=== PATIENT | male | born 1945 | race Caucasian/White ===

== ENCOUNTER 2016-06-09 16:47 | Inpatient (IN) | payer MEDICARE, BC ==
[~2016-06-09] VITALS: Ht 172.7 cm; Wt 47.6 kg
[2016-06-09] MEDS ORDERED: NKM (16:48)
[2016-06-09 17:54] LABS: BASOPHILS % (AUTO) 0.9 % (0.0-2.0); EOSINOPHILS % (AUTO) 0.3 % (0.0-3.0); LYMPHOCYTES % (AUTO) 18.5 % (20.0-45.0); MEAN CORPUSCULAR HEMOGLOBIN 31.2 PG (27.0-31.0); MEAN CORPUSCULAR HGB CONC 31.4 G/DL (32.0-36.0); MEAN CORPUSCULAR VOLUME 99 FL (80-99); MEAN PLATELET VOLUME 7.1 FL (6.5-10.1); NEUTROPHILS % (AUTO) 70.4 % (45.0-75.0); PLATELET COUNT 144 K/UL (150-450); RED BLOOD COUNT 5.52 M/UL (4.70-6.10); RED CELL DISTRIBUTION WIDTH 12.3 % (11.6-14.8); WHITE BLOOD COUNT 4.8 K/UL (4.8-10.8)
[2016-06-09] MEDS ORDERED: DuoNeb 0.5-3(2.5)mg/3ml neb HHN ONE (18:00)
[2016-06-09] MEDS ORDERED: Solu-MEDROL 125mg Inj IVP ONE (18:00)
[2016-06-09 18:20] LABS: APPEARANCE,URINE CLEAR; KETONES,URINE 4+ (NEGATIVE); LEUKOCYTE ESTERASE ,URINE NEGATIVE (NEGATIVE); NITRITE,URINE NEGATIVE (NEGATIVE); PH,URINE 5 (4.5-8.0); PROTEIN,URINE 1+ (NEGATIVE); TROPONIN I < 0.30 ng/mL (<=0.30); UROBILINOGEN,URINE NORMAL MG/DL (0.0-1.0)
[2016-06-09 18:23] LABS: ALANINE AMINOTRANSFERASE 24 U/L (3-41); ANION GAP 13 (5-15); ASPARTATE AMINO TRANSFERASE 45 U/L (5-40); CALCIUM 8.9 mg/dL (8.6-10.2); CARBON DIOXIDE 30 mEQ/L (20-30); CHLORIDE 92 mEQ/L (98-107); CREATININE 0.7 mg/dL (0.7-1.2); HEMOLYSIS 97; POTASSIUM 4.5 mEQ/L (3.4-4.9); SODIUM 135 mEQ/L (135-145); TOTAL PROTEIN 7.3 g/dL (6.6-8.7)
[2016-06-09 18:28] LABS: BACTERIA,URINE FEW /HPF; RBC,URINE 0-2 /HPF (0 - 0); WBC,URINE 0-2 /HPF (0 - 0)
[2016-06-09 18:33] LABS: CKMB < 1.5 ng/mL (< 6.7)
[2016-06-09 19:00] VITALS: BP 108/88
[2016-06-09] MEDS ORDERED: Ketorolac 30mg Inj IV ONE (20:15)
[2016-06-09 23:10] VITALS: BP 103/84
--- NOTE | 2016-06-09 23:46 | Emergency Room Report ---
History of Present Illness General Chief Complaint: General Complaint Source: Patient, EMS Present Illness HPI Patient is a 71-year-old male presented after increased difficulty breathing. The patient had prior history of COPD. The patient had gradually worsening difficulty breathing. Patient had a nonproductive cough. Patient had had not seen a physician for a long period time. Patient does not use oxygen at home. The patient states he had previously had a problem with pain medications. The patient had a long history of smoking. Allergies: Coded Allergies: No Known Allergies (Unverified , 06/09/16) Patient History Past Medical History: see triage record Reviewed Nursing Documentation: PMH: Agreed, PSxH: Agreed Nursing Documentation-PMH Past Medical History: No History, Except For Hx COPD: Yes Review of Systems All Other Systems: negative except mentioned in HPI Physical Exam Vital Signs Date Time Temp Pulse Resp B/P Pulse Ox O2 Delivery O2 Flow Rate FiO2 06/09/16 16:43 98.8 114 26 114/86 99 Room Air 06/09/16 18:30 21 Sp02 EP Interpretation: reviewed, normal General Appearance: normal inspection, alert, mild distress, thin, Chronically Ill Head: atraumatic ENT: normal ENT inspection, hearing grossly normal, normal voice Neck: normal inspection, full range of motion, supple, no bony tend Respiratory: normal inspection, lungs clear, normal breath sounds, no respiratory distress, no retraction, no wheezing Cardiovascular #1: no edema, tachycardia Gastrointestinal: normal inspection, normal bowel sounds, non tender, soft, no guarding, no hernia Genitourinary: no CVA tenderness Musculoskeletal: normal inspection, back normal, normal range of motion Neurologic: normal inspection, alert, oriented x3, responsive, resume writer III-XII nml as tested, motor strength/tone normal, speech normal Psychiatric: normal inspection, judgement/insight normal, mood/affect normal Skin: normal inspection, normal color, no rash Medical Decision Making Diagnostic Impression: Primary Impression: COPD (chronic obstructive pulmonary disease) with emphysema Additional Impressions: Smoker Substance abuse in remission COPD with exacerbation Hypoxemia ER Course Presented for shortness of breath.Differential included but was not limited to anemia, pneumonia, pneumothorax, myocardial infarction, pericardial effusion, congestive heart failure, acidosis. Because of complexity of patient's case laboratory testing and imaging studies were ordered. A chest x-ray one view interpreted by me showed hyperinflation with multiple bullae. The patient was given IV Solu-Medrol. The patient was noted to have some improvement in his respirations. The patient started on supplemental oxygen.The patient was noted to have normal white blood count as well as normal troponin. Dr. Neil Chi was contacted for inpatient management due to hypoxemia. Labs Test 06/09/16 17:30 White Blood Count 4.8 K/UL (4.8-10.8) Red Blood Count 5.52 M/UL (4.70-6.10) Hemoglobin 17.2 G/DL (14.2-18.0) Hematocrit 54.7 % (42.0-52.0) Mean Corpuscular Volume 99 FL (80-99) Mean Corpuscular Hemoglobin 31.2 PG (27.0-31.0) Mean Corpuscular Hemoglobin Concent 31.4 G/DL (32.0-36.0) Red Cell Distribution Width 12.3 % (11.6-14.8) Platelet Count 144 K/UL (150-450) Mean Platelet Volume 7.1 FL (6.5-10.1) Neutrophils (%) (Auto) 70.4 % (45.0-75.0) Lymphocytes (%) (Auto) 18.5 % (20.0-45.0) Monocytes (%) (Auto) 10.0 % (1.0-10.0) Eosinophils (%) (Auto) 0.3 % (0.0-3.0) Basophils (%) (Auto) 0.9 % (0.0-2.0) Urine Color Yellow Urine Appearance Clear Urine pH 5 (4.5-8.0) Urine Specific [place] 1.020 (1.005-1.035) Urine Protein 1+ (NEGATIVE) Urine Glucose (UA) Negative (NEGATIVE) Urine Ketones 4+ (NEGATIVE) Urine Occult Blood 1+ (NEGATIVE) Urine Nitrite Negative (NEGATIVE) Urine Bilirubin Negative (NEGATIVE) Urine Urobilinogen Normal MG/DL (0.0-1.0) Urine Leukocyte Esterase Negative (NEGATIVE) Urine RBC 0-2 /HPF (0 - 0) Urine WBC 0-2 /HPF (0 - 0) Urine Squamous Epithelial Cells None /LPF (NONE/OCC) Urine Bacteria Few /HPF (NONE) Sodium Level 135 mEQ/L (135-145) Potassium Level 4.5 mEQ/L (3.4-4.9) Chloride Level 92 mEQ/L (98-107) Carbon Dioxide Level 30 mEQ/L (20-30) Anion Gap 13 (5-15) Blood Urea Nitrogen 13 mg/dL (7-23) Creatinine 0.7 mg/dL (0.7-1.2) Estimat Glomerular Filtration Rate mL/min (>60) Glucose Level 113 mg/dL (74-106) Lactic Acid Level 1.80 mmol/L (0.66-2.22) Calcium Level 8.9 mg/dL (8.6-10.2) Total Bilirubin 0.3 mg/dL (0.0-1.2) Aspartate Amino Transf (AST/SGOT) 45 U/L (5-40) Alanine Aminotransferase (ALT/SGPT) 24 U/L (3-41) Alkaline Phosphatase 79 U/L (40-129) Total Creatine Kinase 45 U/L (38-174) Creatine Kinase MB < 1.5 ng/mL (< 6.7) Creatine Kinase MB Relative Index Troponin I < 0.30 ng/mL (<=0.30) Total Protein 7.3 g/dL (6.6-8.7) Albumin 3.8 g/dL (3.5-5.2) Globulin 3.5 g/dL Albumin/Globulin Ratio 1.0 (1.0-2.7) EKG Diagnostic Results Rate: tachycardiac - 126 Rhythm: NSR ST Segments: no acute changes Rhythm Strip Diag. Results EP Interpretation: yes Rhythm: no PVC's, no ectopy, other - sinus tachycardia Chest X-Ray Diagnostic Results EP Interpretation: Yes Findings: no consolidation, no effusion, no pneumothorax, no acute cardiopulmonary disease Number of Views: 1 Last Vital Signs Date Time Temp Pulse Resp B/P Pulse Ox O2 Delivery O2 Flow Rate FiO2 06/09/16 23:10 98.9 98 15 103/84 96 Room Air 21 Status: unchanged Disposition: ADMITTED INPATIENT Condition: Serious Referrals: NON PHYSICIAN (PCP) Arthur Brown Jun 09, 2016 23:46
[2016-06-10 04:30] VITALS: BP 102/54
[2016-06-10] MEDS ORDERED: Norco 5mg/325mg tab ORAL PRN (06:15)
[2016-06-10] MEDS ORDERED: guaiFENesin DM 100mg/5ml ORAL PRN (06:15)
[2016-06-10] MEDS ORDERED: DuoNeb 0.5-3(2.5)mg/3ml neb HHN PRN (06:15)
[2016-06-10] MEDS: NovoLOG Insulin Flexpen SUBQ SCH ×4 (06:30→21:00)
[2016-06-10] MEDS: Solu-MEDROL 125mg Inj IVP SCH ×3 (06:43→21:13)
[2016-06-10] MEDS ORDERED: DuoNeb 0.5-3(2.5)mg/3ml neb HHN SCH (07:00)
[2016-06-10 07:54] VITALS: BP 89/50
--- NOTE | 2016-06-10 08:31 | Diagnostic Imaging Report ---
Indication: PAIN Technique: spiral acquisitions obtained through the brain. Angled axial and coronal 5 x 5 mm slices were reconstructed. No IV contrast utilized. Radiation dose was minimized using automated exposure control Total dose length product 1411 mGycm. CTDIvol(s) 70 mGy Comparison: none FINDINGS: No acute hemorrhage or edema. No mass effect or midline shift. There is age-related enlargement of the ventricles and extra axial CSF spaces. There is periventricular deep white matter ischemic change. Normal up-white differentiation. Visualized orbits are unremarkable. Visualized sinuses are unremarkable. Intact calvarium. IMPRESSION: Chronic and age-related changes. Negative for acute intracranial bleed or mass effect This agrees with the preliminary interpretation provided overnight by Dr. Gomez The CT scanner at [facility] is accredited by the [employer] and the scans are performed using protocols designed to limit radiation exposure to as low as reasonably achievable to attain images of sufficient resolution adequate for diagnostic evaluation
[2016-06-10] MEDS: Heparin 5000 units/ml inj SUBQ SCH ×2 (09:00→21:19)
--- NOTE | 2016-06-10 09:02 | Diagnostic Imaging Report ---
Indication: SOB Technique: One view of the chest Comparison: none Findings: The lungs are hyperinflated, as in COPD. Lungs and pleural spaces are clear. The heart size is normal. Impression: COPD. No acute process
[2016-06-10 11:38] VITALS: BP 87/57
[2016-06-10] MEDS ORDERED: Pneumococcal Vaccine 25mcg/0.5ml IM ONE (12:00)
[2016-06-10] MEDS ORDERED: Influenza Virus Vaccine 0.5ml IM ONE (12:00)
--- NOTE | 2016-06-10 12:57 | History & Physical ---
History and Physical History & Physicial Dictated for Int Med-Dr Chi no. [id number]. DAVION STROUD Jun 10, 2016 12:57
[2016-06-10] MEDS ORDERED: Promethazine/Codeine 5ml UD ORAL PRN (13:00)
--- NOTE | 2016-06-10 15:03 | Cardiology Report ---
APPROVED REPORT EKG Measurement Heart [id number] ID [id number] Sinus tachycardia Right atrial enlargement Left axis deviation Low voltage QRS Cannot rule out Anteroseptal infarct, age undetermined Abnormal ECG
[2016-06-10] MEDS: DuoNeb 0.5-3(2.5)mg/3ml neb HHN SCH ×3 (15:34→23:30)
[2016-06-10 16:00] VITALS: BP 91/60
[2016-06-10] MEDS ORDERED: Tubing IV Secondary IV ONE (17:21)
--- NOTE | 2016-06-10 18:07 | History and Physical Report ---
DATE OF ADMISSION: 06/09/2016 CHIEF COMPLAINT: The patient is a 71-year-old white male with a history of chronic obstructive pulmonary disease, presents with chief complaint of shortness of breath. HISTORY OF PRESENT ILLNESS: Began on , 06/04/2016. The patient began to experience cough. The patient also had fevers and chills. The patient states he felt he had the flu. Cough is nonproductive. Fevers were low-grade up to 99 degrees Fahrenheit. The patient states that shortness of breath got worse. The patient also complained of chest tightness associated with the cough. The patient continued to have a nonproductive cough. The patient presented to [place] emergency room and initial chest x-ray revealed chronic obstructive pulmonary disease exacerbation. The patient is admitted for shortness of breath and chronic obstructive pulmonary disease acute exacerbation. PAST MEDICAL HISTORY: Significant for 1. Chronic obstructive pulmonary disease with emphysema. 2. History of peripheral vascular disease of bilateral lower extremities. PAST SURGICAL HISTORY: The patient denies. MEDICATIONS: Current medications, the patient denies. ALLERGIES: No known drug allergies. SOCIAL HISTORY: The patient is antony and has a life partner who is present during the interview. The patient admits to tobacco use of two packs per day. The patient states recently he has dropped to 1/4 pack per day. The patient denies alcohol use. 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 REVIEW OF SYSTEMS: Constitutional: The patient complains of subjective fevers and chills, as above. The patient denies weight loss or weight gain. HEENT: The patient denies ear or throat pain. The patient denies headache. Cardiovascular: The patient denies palpitations or chest pain. Chest: The patient complains of shortness of breath as above. The patient complains of nonproductive cough. The patient denies wheezes. Abdomen: The patient denies nausea, vomiting, or constipation. Genitourinary: The patient denies dysuria or increased frequency of urination. Neuromuscular: The patient denies seizures or generalized weakness. PHYSICAL EXAMINATION: VITAL SIGNS: Temperature 98.9 degrees, respirations 15 to 20, pulse 78 to 98, and blood pressure 87/57 to 105/85. GENERAL: The patient is a thin appearing white male, who is in moderate respiratory distress. HEENT: Eyes, pupils are equal and responsive to light and accommodation. Extraocular movements intact. NECK: Supple. No lymphadenopathy. CHEST: Lungs are clear to auscultation bilaterally without wheezes or rales. CARDIOVASCULAR: Regular rhythm and rate. S1 and S2. No murmurs, rubs, or gallops. ABDOMEN: Soft and nontender. She has poor air movement of bilateral lung royal. Few crackles at bilateral bases. Few scattered wheezes throughout the lung royal. ABDOMEN: Soft, nontender, and nondistended. Positive bowel sounds. No evidence of hepatosplenomegaly. Currently, no rebound and no guarding. RECTAL/GENITAL: Refused. EXTREMITIES: No clubbing, cyanosis, or edema. NEUROLOGIC: Cranial nerves II through XII are grossly intact without focal deficits. Motor strength in 5/5 bilaterally. Deep tendon reflexes are 2+ plantar. LABORATORY AND DIAGNOSTIC DATA: WBC 4.8, hemoglobin 17.2, hematocrit 54.7, and platelets 144,000. Sodium 135, potassium 4.5, chloride 92, CO2 30, BUN 13, creatinine 0.7, and glucose 117. Troponin less than 0.3. Chest x-ray revealed hyper infiltration consistent with chronic obstructive pulmonary disease. There were no infiltrates noted. ASSESSMENT: This is a 71-year-old white male 1. Shortness of breath. 2. Cough. 3. Chronic obstructive pulmonary disease. 4. Peripheral vascular disease. TREATMENT: 1. Shortness of breath/cough/chronic obstructive pulmonary disease, acute exacerbation. A Pulmonary consultation was obtained with Dr. Monica Dobbins. The patient has been started on intravenous Solu-Medrol. The patient is also receiving Levaquin antibiotics intravenously. The patient is also receiving DuoNeb q.4 h. as schedule. We will follow recommendations of Pulmonary. 2. Chronic obstructive pulmonary disease appears to be end-stage. The patient may require home oxygen upon discharge. We will follow recommendation of Pulmonary. 3. Peripheral vascular disease. Geovany Samaniego M.D. DR: SELENE JOB#: [id number] CC:
[2016-06-10 20:00] VITALS: BP 100/46
[2016-06-11] VITALS (7 sets, daily range): BP systolic 84–106; BP diastolic 51–61
[2016-06-11] MEDS: DuoNeb 0.5-3(2.5)mg/3ml neb HHN SCH ×6 (03:18→23:57)
[2016-06-11] MEDS: Solu-MEDROL 125mg Inj IVP SCH ×3 (05:54→21:21)
[2016-06-11] MEDS: NovoLOG Insulin Flexpen SUBQ SCH ×4 (06:30→21:00)
[2016-06-11] MEDS ORDERED: Levofloxacin 250mg/D5W 50ml IVPB SCH (07:00)
[2016-06-11 08:07] LABS: MEAN CORPUSCULAR HEMOGLOBIN 31.8 PG (27.0-31.0); MEAN CORPUSCULAR HGB CONC 32.7 G/DL (32.0-36.0); MEAN CORPUSCULAR VOLUME 97 FL (80-99); MEAN PLATELET VOLUME 8.3 FL (6.5-10.1); PLATELET COUNT 145 K/UL (150-450); RED BLOOD COUNT 4.49 M/UL (4.70-6.10); RED CELL DISTRIBUTION WIDTH 12.1 % (11.6-14.8); WHITE BLOOD COUNT 12.7 K/UL (4.8-10.8)
[2016-06-11 08:22] LABS: TROPONIN I < 0.30 ng/mL (<=0.30)
[2016-06-11 08:30] LABS: ALANINE AMINOTRANSFERASE 52 U/L (3-41); ALBUMIN/GLOBULIN RATIO 1.2 (1.0-2.7); ANION GAP 11 (5-15); ASPARTATE AMINO TRANSFERASE 60 U/L (5-40); CALCIUM 8.8 mg/dL (8.6-10.2); CARBON DIOXIDE 28 mEQ/L (20-30); CHLORIDE 99 mEQ/L (98-107); CREATININE 0.6 mg/dL (0.7-1.2); HEMOLYSIS 2; MAGNESIUM 1.9 mg/dL (1.7-2.5); PHOSPHORUS 2.7 mg/dL (2.5-4.8); SODIUM 138 mEQ/L (135-145); TOTAL PROTEIN 5.8 g/dL (6.6-8.7)
[2016-06-11] MEDS: Heparin 5000 units/ml inj SUBQ SCH ×2 (09:12→21:00)
[2016-06-11 10:27] LABS: BAND NEUTROPHILS % (MANUAL) 10 % (0-8); BASOPHILS % (MANUAL) 0 % (0-2); EOSINOPHILS % (MANUAL) 0 % (0-3); LYMPHOCYTES % (MANUAL) 5 % (20-45); NEUTROPHILS % (MANUAL) 80 % (45-75); PLATELET ESTIMATE ADEQUATE; PLATELET MORPHOLOGY NORMAL; TOTAL CELLS COUNTED 100
[2016-06-11] MEDS ORDERED: Promethazine/Codeine 5ml UD ORAL PRN ×2 (15:30→23:30)
--- NOTE | 2016-06-11 15:43 | Consultation ---
History of Present Illness General Date patient seen: Jun 11, 2016 Chief Complaint: General Complaint Referring physician: Dr. Chi Reason for Consultation: Dyspnea Present Illness HPI 71-year-old male with hx of emphysema, heavy smoking all his life, presented after increased difficulty breathing which started gradually worsening.He also had a nonproductive cough. Patient had had not seen a physician for a long period time. He was diagnosed to have acute exacerbation of COPD and emphysema and admitted for further work up. His cxr was very abnormal as well showing severe emphysematous changes. Allergies: Coded Allergies: No Known Allergies (Unverified , 06/09/16) Medication History Scheduled No Known Medications* (NKM - No Known Medications*), 0 ., (Reported) Patient History History Provided By: Patient Healthcare decision maker pt alert and oriented Resuscitation status Full Code Advanced Directive on File Past Medical/Surgical History Past Medical/Surgical History: (1) Smoker (2) Substance abuse in remission (3) COPD (chronic obstructive pulmonary disease) with emphysema Review of Systems Respiratory: Reports: shortness of breath, sputum, wheezing Physical Exam General Appearance: cachetic Lines, tubes and drains: peripheral HEENT: normocephalic, atraumatic Neck: non-tender, normal alignment Respiratory/Chest: chest wall non-tender, lungs clear Cardiovascular/Chest: normal peripheral pulses, normal rate Abdomen: normal bowel sounds, non tender Genitourinary/Rectal: normal genital exam, normal rectal exam Extremities: normal range of motion, non-tender 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 Last 24 Hour Vital Signs Date Time Temp Pulse Resp B/P Pulse Ox O2 Delivery O2 Flow Rate FiO2 06/11/16 14:40 97 20 100 Nasal Cannula 2.0 06/11/16 14:30 99 20 97 Nasal Cannula 2.0 06/11/16 12:00 102 06/11/16 11:42 97.5 101 20 87/51 98 Nasal Cannula 3.0 06/11/16 11:25 107 18 97 Nasal Cannula 2.0 06/11/16 11:15 107 18 93 Nasal Cannula 2.0 06/11/16 08:04 97.7 86 20 84/51 94 Nasal Cannula 3.0 06/11/16 08:00 83 06/11/16 07:45 89 18 98 Nasal Cannula 2.0 06/11/16 07:35 89 18 94 Nasal Cannula 2.0 06/11/16 07:33 93 Nasal Cannula 2.0 06/11/16 07:32 Nasal Cannula 2.0 06/11/16 04:11 98.4 86 19 90/55 97 Room Air 06/11/16 04:00 89 06/11/16 03:25 70 16 99 Nasal Cannula 2.0 28 06/11/16 03:17 71 16 96 Nasal Cannula 2.0 28 06/11/16 03:17 28 06/11/16 00:43 98.4 83 20 95/53 98 Nasal Cannula 2.0 06/11/16 00:00 95 06/10/16 23:38 87 16 98 Nasal Cannula 2.0 28 06/10/16 23:30 81 16 96 Nasal Cannula 2.0 28 06/10/16 23:30 28 06/10/16 20:31 90 18 98 Nasal Cannula 2.0 28 06/10/16 20:22 86 18 95 Nasal Cannula 2.0 28 06/10/16 20:22 28 06/10/16 20:21 94 Nasal Cannula 2.0 28 06/10/16 20:21 Nasal Cannula 2.0 28 06/10/16 20:00 97.6 96 20 100/46 97 Nasal Cannula 2.0 06/10/16 20:00 83 06/10/16 16:00 97.7 96 22 91/60 97 Nasal Cannula 2.0 06/10/16 16:00 78 06/10/16 15:49 73 18 100 Nasal Cannula 2.0 28 Intake and Output 06/10/16 06/11/16 19:00 07:00 Intake Total 1500 ml 1011.25 ml Output Total 350 ml 700 ml Balance 1150 ml 311.25 ml Intake Oral 600 ml 200 ml IV Total 900 ml 811.25 ml Output Urine Total 350 ml 700 ml Laboratory Tests Test 06/11/16 07:45 White Blood Count 12.7 K/UL (4.8-10.8) H Red Blood Count 4.49 M/UL (4.70-6.10) L Hemoglobin 14.3 G/DL (14.2-18.0) Hematocrit 43.7 % (42.0-52.0) Mean Corpuscular Volume 97 FL (80-99) Mean Corpuscular Hemoglobin 31.8 PG (27.0-31.0) H Mean Corpuscular Hemoglobin Concent 32.7 G/DL (32.0-36.0) Red Cell Distribution Width 12.1 % (11.6-14.8) Platelet Count 145 K/UL (150-450) L Mean Platelet Volume 8.3 FL (6.5-10.1) Neutrophils (%) (Auto) % (45.0-75.0) Lymphocytes (%) (Auto) % (20.0-45.0) Monocytes (%) (Auto) % (1.0-10.0) Eosinophils (%) (Auto) % (0.0-3.0) Basophils (%) (Auto) % (0.0-2.0) Differential Total Cells Counted 100 Neutrophils % (Manual) 80 % (45-75) H Lymphocytes % (Manual) 5 % (20-45) L Monocytes % (Manual) 5 % (1-10) Eosinophils % (Manual) 0 % (0-3) Basophils % (Manual) 0 % (0-2) Band Neutrophils 10 % (0-8) H Platelet Estimate Adequate Platelet Morphology Normal Red Blood Cell Morphology Normal Sodium Level 138 mEQ/L (135-145) Potassium Level 4.0 mEQ/L (3.4-4.9) Chloride Level 99 mEQ/L (98-107) Carbon Dioxide Level 28 mEQ/L (20-30) Anion Gap 11 (5-15) Blood Urea Nitrogen 13 mg/dL (7-23) Creatinine 0.6 mg/dL (0.7-1.2) L Estimat Glomerular Filtration Rate mL/min (>60) Glucose Level 140 mg/dL (74-106) H Calcium Level 8.8 mg/dL (8.6-10.2) Phosphorus Level 2.7 mg/dL (2.5-4.8) Magnesium Level 1.9 mg/dL (1.7-2.5) Total Bilirubin 0.3 mg/dL (0.0-1.2) Aspartate Amino Transf (AST/SGOT) 60 U/L (5-40) H Alanine Aminotransferase (ALT/SGPT) 52 U/L (3-41) H Alkaline Phosphatase 52 U/L (40-129) Troponin I < 0.30 ng/mL (<=0.30) Total Protein 5.8 g/dL (6.6-8.7) L Albumin 3.2 g/dL (3.5-5.2) L Globulin 2.6 g/dL Albumin/Globulin Ratio 1.2 (1.0-2.7) Height (Feet): 5 Height (Inches): 8.00 Weight (Pounds): 105 Medications Current Medications Medications (Trade) Dose Ordered Sig/Isabel Route PRN Reason Start Time Stop Time Status Last Admin Dose Admin Acetaminophen (Tylenol) 650 mg Q6H PRN ORAL Mild Pain/Temp > 100.5 06/10/16 06:15 07/10/16 06:14 Acetaminophen/ Hydrocodone Bitart ([place] 5/325) 1 tab Q6H PRN ORAL MOD-SEVERE PAIN 06/10/16 06:15 06/17/16 06:14 Albuterol/ Ipratropium (DuoNeb 0.5-3(2.5)mg/3ml) 3 ml Q4HRT HHN 06/10/16 15:00 06/15/16 14:59 06/11/16 14:39 Dextrose STAT PRN IV Hypoglycemia 06/10/16 06:15 07/10/16 06:14 Heparin Sodium (Porcine) (Heparin 5000 units/ml) 5,000 units EVERY 12 HOURS SUBQ 06/10/16 09:00 07/10/16 08:59 06/11/16 09:12 Insulin Aspart (NovoLOG) BEFORE MEALS AND HS SUBQ 06/10/16 06:30 07/10/16 06:29 Levofloxacin (Levaquin) 50 ml @ 50 mls/hr Q24H IVPB 06/11/16 07:00 06/18/16 06:59 06/11/16 06:58 Methylprednisolone Sodium Succinate (Solu-MEDROL) 80 mg EVERY 12 HOURS IVP 06/11/16 21:00 07/11/16 20:59 UNV Ondansetron HCl (Zofran) 4 mg Q4H PRN IVP Nausea & Vomiting 06/10/16 06:15 07/10/16 06:14 Promethazine HCl/ Codeine (Phenergan with Codeine) 5 ml Q4H PRN ORAL For Cough 06/10/16 13:00 07/10/16 12:59 06/10/16 20:11 Promethazine HCl/ Codeine (Phenergan with Codeine) 5 ml Q4H PRN ORAL For Cough 06/11/16 15:30 07/11/16 15:29 UNV Assessment/Plan Problem List: (1) Acute exacerbation of chronic obstructive pulmonary disease ICD Codes: J44.1 - Chronic obstructive pulmonary disease with (acute) exacerbation SNOMED: 940057465 (2) Hypoxemia ICD Codes: R09.02 - Hypoxemia SNOMED: 308290303 (3) Substance abuse in remission ICD Codes: F19.10 - Other psychoactive substance abuse, uncomplicated SNOMED: 651833816 (4) Smoker ICD Codes: F17.200 - Nicotine dependence, unspecified, uncomplicated SNOMED: 03536065 Assessment/Plan IV steroids check sputum theophylline chest pt IV antibiotics CT chest to ass the extent of the emphysema RIAN LEOS Jun 11, 2016 15:42
--- NOTE | 2016-06-11 16:03 | Internal Med Progress Note ---
Subjective Date of Service: Jun 11, 2016 Physician Name Davion Stroud Attending Physician Neil Chi MD Current Medications Medications (Trade) Dose Ordered Sig/Isabel Route PRN Reason Start Time Stop Time Status Last Admin Dose Admin Acetaminophen (Tylenol) 650 mg Q6H PRN ORAL Mild Pain/Temp > 100.5 06/10/16 06:15 07/10/16 06:14 Acetaminophen/ Hydrocodone Bitart ([place] 5/325) 1 tab Q6H PRN ORAL MOD-SEVERE PAIN 06/10/16 06:15 06/17/16 06:14 Albuterol/ Ipratropium (DuoNeb 0.5-3(2.5)mg/3ml) 3 ml Q4HRT HHN 06/10/16 15:00 06/15/16 14:59 06/11/16 14:39 Dextrose STAT PRN IV Hypoglycemia 06/10/16 06:15 07/10/16 06:14 Heparin Sodium (Porcine) (Heparin 5000 units/ml) 5,000 units EVERY 12 HOURS SUBQ 06/10/16 09:00 07/10/16 08:59 06/11/16 09:12 Insulin Aspart (NovoLOG) BEFORE MEALS AND HS SUBQ 06/10/16 06:30 07/10/16 06:29 Levofloxacin (Levaquin) 50 ml @ 50 mls/hr Q24H IVPB 06/11/16 07:00 06/18/16 06:59 06/11/16 06:58 Methylprednisolone Sodium Succinate (Solu-MEDROL) 80 mg EVERY 12 HOURS IVP 06/11/16 21:00 07/11/16 20:59 Ondansetron HCl (Zofran) 4 mg Q4H PRN IVP Nausea & Vomiting 06/10/16 06:15 07/10/16 06:14 Promethazine HCl/ Codeine (Phenergan with Codeine) 5 ml Q4H PRN ORAL For Cough 06/11/16 15:30 07/11/16 15:29 Allergies: Coded Allergies: No Known Allergies (Unverified , 06/09/16) ROS Limited/Unobtainable: No Constitutional: Reports: no symptoms HEENT: Reports: no symptoms Cardiovascular: Reports: no symptoms Respiratory: Reports: cough, shortness of breath Gastrointestinal/Abdominal: Reports: no symptoms Genitourinary: Reports: no symptoms Neurologic/Psychiatric: Reports: no symptoms Subjective Cover for Int Jose-Dr Chi. Await CT chest. Objective Last Vital Signs Date Time Temp Pulse Resp B/P Pulse Ox O2 Delivery O2 Flow Rate FiO2 06/11/16 14:40 97 20 100 Nasal Cannula 2.0 06/11/16 11:42 97.5 87/51 06/11/16 03:25 28 General Appearance: alert, moderate distress, thin EENT: PERRL/EOMI, normal ENT inspection, TMs normal Neck: non-tender, normal alignment, supple, normal inspection Cardiovascular: regular rhythm, no gallop/murmur, no JVD, tachycardia Respiratory/Chest: chest wall non-tender, decreased breath sounds, accessory muscle use, crackles/rales, rhonchi - bilaterally, expiratory wheezing Abdomen: normal bowel sounds, non tender, soft, no organomegaly, no mass Extremities: normal range of motion, non-tender 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, no motor/sensory deficits Skin: normal pigmentation, warm/dry Laboratory Tests Test 06/11/16 07:45 White Blood Count 12.7 K/UL (4.8-10.8) H Red Blood Count 4.49 M/UL (4.70-6.10) L Hemoglobin 14.3 G/DL (14.2-18.0) Hematocrit 43.7 % (42.0-52.0) Mean Corpuscular Volume 97 FL (80-99) Mean Corpuscular Hemoglobin 31.8 PG (27.0-31.0) H Mean Corpuscular Hemoglobin Concent 32.7 G/DL (32.0-36.0) Red Cell Distribution Width 12.1 % (11.6-14.8) Platelet Count 145 K/UL (150-450) L Mean Platelet Volume 8.3 FL (6.5-10.1) Neutrophils (%) (Auto) % (45.0-75.0) Lymphocytes (%) (Auto) % (20.0-45.0) Monocytes (%) (Auto) % (1.0-10.0) Eosinophils (%) (Auto) % (0.0-3.0) Basophils (%) (Auto) % (0.0-2.0) Differential Total Cells Counted 100 Neutrophils % (Manual) 80 % (45-75) H Lymphocytes % (Manual) 5 % (20-45) L Monocytes % (Manual) 5 % (1-10) Eosinophils % (Manual) 0 % (0-3) Basophils % (Manual) 0 % (0-2) Band Neutrophils 10 % (0-8) H Platelet Estimate Adequate Platelet Morphology Normal Red Blood Cell Morphology Normal Sodium Level 138 mEQ/L (135-145) Potassium Level 4.0 mEQ/L (3.4-4.9) Chloride Level 99 mEQ/L (98-107) Carbon Dioxide Level 28 mEQ/L (20-30) Anion Gap 11 (5-15) Blood Urea Nitrogen 13 mg/dL (7-23) Creatinine 0.6 mg/dL (0.7-1.2) L Estimat Glomerular Filtration Rate mL/min (>60) Glucose Level 140 mg/dL (74-106) H Calcium Level 8.8 mg/dL (8.6-10.2) Phosphorus Level 2.7 mg/dL (2.5-4.8) Magnesium Level 1.9 mg/dL (1.7-2.5) Total Bilirubin 0.3 mg/dL (0.0-1.2) Aspartate Amino Transf (AST/SGOT) 60 U/L (5-40) H Alanine Aminotransferase (ALT/SGPT) 52 U/L (3-41) H Alkaline Phosphatase 52 U/L (40-129) Troponin I < 0.30 ng/mL (<=0.30) Total Protein 5.8 g/dL (6.6-8.7) L Albumin 3.2 g/dL (3.5-5.2) L Globulin 2.6 g/dL Albumin/Globulin Ratio 1.2 (1.0-2.7) Microbiology Date/Time Source Procedure Growth Status 06/09/16 17:30 Blood Blood Culture - Preliminary NO GROWTH AFTER 24 HOURS Resulted 06/09/16 17:15 Blood Blood Culture - Preliminary NO GROWTH AFTER 24 HOURS Resulted 06/09/16 23:15 Nasal Nares Influenza Types A,B Antigen (KAYLEEN) - Final Complete Intake and Output 06/10/16 06/11/16 19:00 07:00 Intake Total 1500 ml 1211.25 ml Output Total 350 ml 700 ml Balance 1150 ml 511.25 ml Intake Oral 600 ml 200 ml IV Total 900 ml 1011.25 ml Output Urine Total 350 ml 700 ml Assessment/Plan Problem List: (1) Peripheral vascular disease (2) Hypoxemia Assessment & Plan: Due to COPD - see below (3) Smoker (4) COPD (chronic obstructive pulmonary disease) with emphysema Assessment & Plan: Await CT chest - See pulmonary note. (5) Acute exacerbation of chronic obstructive pulmonary disease Assessment & Plan: see pulmonary note. Cont IV solumedrol, duoneb and theophylline. Status: not improved DAVION STROUD Jun 11, 2016 16:03
[2016-06-11] MEDS ORDERED: Advair 250/50 Inhaler - 14 dose INH SCH (18:00)
[2016-06-11] MEDS ORDERED: Solu-MEDROL 125mg Inj IVP SCH (21:00)
[2016-06-12] VITALS: BP 100/60
[2016-06-12] MEDS ORDERED: Norco 5mg/325mg tab ORAL PRN (00:15)
[2016-06-12] MEDS: DuoNeb 0.5-3(2.5)mg/3ml neb HHN SCH ×6 (03:00→23:16)
[2016-06-12 04:00] VITALS: BP 99/60
[2016-06-12] MEDS: NovoLOG Insulin Flexpen SUBQ SCH ×4 (06:01→21:00)
[2016-06-12 06:44] LABS: MEAN CORPUSCULAR HEMOGLOBIN 31.6 PG (27.0-31.0); MEAN CORPUSCULAR HGB CONC 32.1 G/DL (32.0-36.0); MEAN CORPUSCULAR VOLUME 99 FL (80-99); MEAN PLATELET VOLUME 6.9 FL (6.5-10.1); PLATELET COUNT 147 K/UL (150-450); RED BLOOD COUNT 4.03 M/UL (4.70-6.10); RED CELL DISTRIBUTION WIDTH 12.3 % (11.6-14.8); WHITE BLOOD COUNT 13.2 K/UL (4.8-10.8)
[2016-06-12 06:49] LABS: ANION GAP 7 (5-15); CALCIUM 8.7 mg/dL (8.6-10.2); CARBON DIOXIDE 30 mEQ/L (20-30); CHLORIDE 103 mEQ/L (98-107); CREATININE 0.6 mg/dL (0.7-1.2); HEMOLYSIS 4; POTASSIUM 4.7 mEQ/L (3.4-4.9); SODIUM 140 mEQ/L (135-145)
[2016-06-12 08:51] VITALS: BP 104/63
--- NOTE | 2016-06-12 08:52 | Pulmonology Progress Note ---
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 case discussed and evaluated by supervising physician Subjective Allergies: Coded Allergies: No Known Allergies (Unverified , 06/09/16) Subjective afebrile, mild leukocytosis clinically improving CT chest pending occasional SOB with dry cough, no hemoptysis, no wheezing no chest pain, no palpitations Objective Last 24 Hour Vital Signs Date Time Temp Pulse Resp B/P Pulse Ox O2 Delivery O2 Flow Rate FiO2 06/12/16 08:14 91 20 97 Nasal Cannula 2.0 28 06/12/16 08:04 93 Nasal Cannula 2.0 28 06/12/16 08:04 Nasal Cannula 2.0 28 06/12/16 08:04 90 20 93 Nasal Cannula 2.0 28 06/12/16 04:00 97.2 96 18 99/60 95 Nasal Cannula 2.0 06/12/16 03:30 Nasal Cannula 2.0 28 06/12/16 03:30 Nasal Cannula 2.0 28 06/12/16 00:05 93 20 99 Nasal Cannula 2.0 28 06/12/16 00:00 98.2 95 18 100/60 95 Room Air 06/11/16 23:57 88 20 97 Nasal Cannula 2.0 28 06/11/16 20:30 98.2 102 18 101/60 99 Nasal Cannula 2.0 06/11/16 20:00 97.8 77 18 106/61 98 Nasal Cannula 3.0 06/11/16 19:48 91 20 99 Nasal Cannula 2.0 28 06/11/16 19:40 85 20 96 Nasal Cannula 2.0 28 06/11/16 19:38 Nasal Cannula 2.0 28 06/11/16 19:38 96 Nasal Cannula 2.0 28 06/11/16 16:10 98.1 100 19 93/54 97 Nasal Cannula 3.0 06/11/16 16:00 99 06/11/16 14:40 97 20 100 Nasal Cannula 2.0 06/11/16 14:30 99 20 97 Nasal Cannula 2.0 06/11/16 12:00 102 06/11/16 11:42 97.5 101 20 87/51 98 Nasal Cannula 3.0 06/11/16 11:25 107 18 97 Nasal Cannula 2.0 06/11/16 11:15 107 18 93 Nasal Cannula 2.0 Intake and Output 06/11/16 06/12/16 19:00 07:00 Intake Total 688.75 ml 610 ml Output Total 600 ml 900 ml Balance 88.75 ml -290 ml Intake Oral 200 ml 610 ml IV Total 488.75 ml Output Urine Total 600 ml 900 ml General Appearance: WD/WN, no acute distress, cachetic HEENT: normocephalic, atraumatic, anicteric, PERRL, no JVD Respiratory/Chest: chest wall non-tender, no respiratory distress, no accessory muscle use, decreased breath sounds Cardiovascular: normal peripheral pulses, regular rhythm, no JVD, tachycardia - 100-106 Abdomen: normal bowel sounds, soft, non tender Genitourinary: normal external genitalia Extremities: no edema, pedal pulses normal Neurologic/Psychiatric: no motor/sensory deficits, alert, oriented x 3, responsive Musculoskeletal: normal muscle bulk Microbiology Date/Time Source Procedure Growth Status 06/09/16 17:30 Blood Blood Culture - Preliminary NO GROWTH AFTER 48 HOURS Resulted 06/09/16 17:15 Blood Blood Culture - Preliminary NO GROWTH AFTER 48 HOURS Resulted 06/09/16 23:15 Nasal Nares Influenza Types A,B Antigen (KAYLEEN) - Final Complete Laboratory Tests 06/12/16 05:45: White Blood Count 13.2H, Red Blood Count 4.03L, Hemoglobin 12.8L, Hematocrit 39.8L, Mean Corpuscular Volume 99, Mean Corpuscular Hemoglobin 31.6H, Mean Corpuscular Hemoglobin Concent 32.1, Red Cell Distribution Width 12.3, Platelet Count 147L, Mean Platelet Volume 6.9, Neutrophils (%) (Auto) , Lymphocytes (%) ( Auto) , Monocytes (%) (Auto) , Eosinophils (%) (Auto) , Basophils (%) (Auto) , Neutrophils % (Manual) [Pending], Lymphocytes % (Manual) [Pending], Platelet Estimate [Pending], Platelet Morphology [Pending], Sodium Level 140, Potassium Level 4.7, Chloride Level 103, Carbon Dioxide Level 30, Anion Gap 7, Blood Urea Nitrogen 13, Creatinine 0.6L, Estimat Glomerular Filtration Rate , Glucose Level 125H, Calcium Level 8.7 Current Medications Medications (Trade) Dose Ordered Sig/Isabel Route PRN Reason Start Time Stop Time Status Last Admin Dose Admin Acetaminophen (Tylenol) 650 mg Q6H PRN ORAL Mild Pain/Temp > 100.5 06/12/16 00:15 07/12/16 00:14 Acetaminophen/ Hydrocodone Bitart ([place] 5/325) 1 tab Q6H PRN ORAL MOD-SEVERE PAIN 06/12/16 00:15 06/19/16 00:14 Albuterol/ Ipratropium (DuoNeb 0.5-3(2.5)mg/3ml) 3 ml Q4HRT HHN 06/11/16 23:00 06/16/16 22:59 06/12/16 08:04 Dextrose (Dextrose 50%) STAT PRN IV Hypoglycemia 06/12/16 06:15 07/12/16 06:14 Heparin Sodium (Porcine) (Heparin 5000 units/ml) 5,000 units EVERY 12 HOURS SUBQ 06/11/16 21:00 07/11/16 20:59 Insulin Aspart (NovoLOG) BEFORE MEALS AND HS SUBQ 06/11/16 21:00 07/11/16 20:59 Levofloxacin (Levaquin) 50 ml @ 50 mls/hr Q24H IVPB 06/12/16 08:00 06/18/16 07:59 Methylprednisolone Sodium Succinate (Solu-MEDROL) 80 mg EVERY 12 HOURS IVP 06/11/16 21:00 07/11/16 20:59 06/11/16 21:21 Ondansetron HCl (Zofran) 4 mg Q4H PRN IVP Nausea & Vomiting 06/11/16 22:15 07/11/16 22:14 Promethazine HCl/ Codeine (Phenergan with Codeine) 5 ml Q4H PRN ORAL For Cough 06/11/16 23:30 07/11/16 23:29 Salmeterol Xinafoate/ Fluticasone (Advair 250/50 Diskus) 1 puffs BID INH 06/12/16 09:00 07/12/16 08:59 [place] ([facility]),Mery LAU Jun 12, 2016 08:52
[2016-06-12] MEDS: Heparin 5000 units/ml inj SUBQ SCH ×2 (09:00→21:00)
[2016-06-12] MEDS: Solu-MEDROL 125mg Inj IVP SCH (09:05)
[2016-06-12] MEDS: Advair 250/50 Inhaler - 14 dose INH SCH ×2 (11:15→19:43)
[2016-06-12 12:01] VITALS: BP 96/56
[2016-06-12 12:09] LABS: BAND NEUTROPHILS % (MANUAL) 4 % (0-8); BASOPHILS % (MANUAL) 0 % (0-2); EOSINOPHILS % (MANUAL) 0 % (0-3); LYMPHOCYTES % (MANUAL) 4 % (20-45); NEUTROPHILS % (MANUAL) 88 % (45-75); PLATELET ESTIMATE ADEQUATE; PLATELET MORPHOLOGY NORMAL; TOTAL CELLS COUNTED 100
[2016-06-12] MEDS ORDERED: Tubing IV Secondary IV ONE (15:24)
--- NOTE | 2016-06-12 15:25 | Diagnostic Imaging Report ---
Clinical Indication: DYSPNEA Technique: IV administration nonionic contrast. Spiral acquisition obtained through the chest. Multiplanar reconstructions generated. Total dose length product 43 mGycm. CTDIvol(s) 8, 48, 10 mGy Comparison: None Findings: The lungs are mildly hyperinflated, consistent with COPD changes. There is bronchial wall thickening and mild bronchiectasis at both lung bases. There is trace right and small left pleural effusions. There is compressive atelectasis at the left lung base. Nonspecific reticular parenchymal opacities are seen posteriorly at the left lung base. Small bullae or subpleural blebs are seen in the lung apices bilaterally. No dense consolidation. No definite masses or nodules. The heart is not enlarged. No pericardial effusion. There is a borderline enlarged left hilar/precarinal lymph node, which measures 2 cm long axis dimension. No other mediastinal or hilar mass or adenopathy. The visualized portions of the thyroid are unremarkable. No axillary or chest wall mass or adenopathy. The bones are osteoporotic but grossly intact. The included upper abdominal anatomy is unremarkable except for a small accessory splenule. There is a subcentimeter low-attenuation lesion within the right kidney which is too small to characterize, most likely benign simple cortical cyst. Impression: COPD changes Other chronic changes, including bronchial wall thickening and bilateral basilar bronchiectasis, nonspecific left basilar reticular parenchymal opacities which are electronic fibrotic changes Bilateral pleural effusions Borderline left hilar/precarinal lymphadenopathy, nonspecific subcentimeter right renal low-attenuation lesion, despite characterize, most likely benign simple cortical cyst The CT scanner at [facility] is accredited by the [employer] and the scans are performed using protocols designed to limit radiation exposure to as low as reasonably achievable to attain images of sufficient resolution adequate for diagnostic evaluation.
[2016-06-12 16:00] VITALS: BP 101/54
--- NOTE | 2016-06-12 17:56 | Internal Med Progress Note ---
Subjective Date of Service: Jun 12, 2016 Physician Name Davion Stroud Attending Physician Neil Chi MD Current Medications Medications (Trade) Dose Ordered Sig/Isabel Route PRN Reason Start Time Stop Time Status Last Admin Dose Admin Acetaminophen (Tylenol) 650 mg Q6H PRN ORAL Mild Pain/Temp > 100.5 06/12/16 00:15 07/12/16 00:14 Acetaminophen/ Hydrocodone Bitart ([place] 5/325) 1 tab Q6H PRN ORAL MOD-SEVERE PAIN 06/12/16 00:15 06/19/16 00:14 Albuterol/ Ipratropium (DuoNeb 0.5-3(2.5)mg/3ml) 3 ml Q4HRT HHN 06/11/16 23:00 06/16/16 22:59 06/12/16 14:40 Dextrose (Dextrose 50%) STAT PRN IV Hypoglycemia 06/12/16 06:15 07/12/16 06:14 Heparin Sodium (Porcine) (Heparin 5000 units/ml) 5,000 units EVERY 12 HOURS SUBQ 06/11/16 21:00 07/11/16 20:59 Insulin Aspart (NovoLOG) BEFORE MEALS AND HS SUBQ 06/11/16 21:00 07/11/16 20:59 Levofloxacin (Levaquin) 50 ml @ 50 mls/hr Q24H IVPB 06/12/16 08:00 06/18/16 07:59 06/12/16 09:06 Methylprednisolone Sodium Succinate (Solu-MEDROL) 80 mg DAILY IVP 06/13/16 09:00 07/13/16 08:59 Ondansetron HCl (Zofran) 4 mg Q4H PRN IVP Nausea & Vomiting 06/11/16 22:15 07/11/16 22:14 Promethazine HCl/ Codeine (Phenergan with Codeine) 5 ml Q4H PRN ORAL For Cough 06/11/16 23:30 07/11/16 23:29 Salmeterol Xinafoate/ Fluticasone (Advair 250/50 Diskus) 1 puffs BID INH 06/12/16 09:00 07/12/16 08:59 06/12/16 11:15 Allergies: Coded Allergies: No Known Allergies (Unverified , 06/09/16) ROS Limited/Unobtainable: No Constitutional: Reports: no symptoms HEENT: Reports: no symptoms Cardiovascular: Reports: no symptoms Respiratory: Reports: cough, shortness of breath Gastrointestinal/Abdominal: Reports: no symptoms Genitourinary: Reports: no symptoms Neurologic/Psychiatric: Reports: no symptoms Subjective Cover for Nacho Chi. Objective Last Vital Signs Date Time Temp Pulse Resp B/P Pulse Ox O2 Delivery O2 Flow Rate FiO2 06/12/16 16:00 98.4 97 20 101/54 95 Nasal Cannula 2.0 06/12/16 14:51 28 Laboratory Tests Test 06/12/16 05:45 White Blood Count 13.2 K/UL (4.8-10.8) H Red Blood Count 4.03 M/UL (4.70-6.10) L Hemoglobin 12.8 G/DL (14.2-18.0) L Hematocrit 39.8 % (42.0-52.0) L Mean Corpuscular Volume 99 FL (80-99) Mean Corpuscular Hemoglobin 31.6 PG (27.0-31.0) H Mean Corpuscular Hemoglobin Concent 32.1 G/DL (32.0-36.0) Red Cell Distribution Width 12.3 % (11.6-14.8) Platelet Count 147 K/UL (150-450) L Mean Platelet Volume 6.9 FL (6.5-10.1) Neutrophils (%) (Auto) % (45.0-75.0) Lymphocytes (%) (Auto) % (20.0-45.0) Monocytes (%) (Auto) % (1.0-10.0) Eosinophils (%) (Auto) % (0.0-3.0) Basophils (%) (Auto) % (0.0-2.0) Differential Total Cells Counted 100 Neutrophils % (Manual) 88 % (45-75) H Lymphocytes % (Manual) 4 % (20-45) L Monocytes % (Manual) 4 % (1-10) Eosinophils % (Manual) 0 % (0-3) Basophils % (Manual) 0 % (0-2) Band Neutrophils 4 % (0-8) Platelet Estimate Adequate Platelet Morphology Normal Red Blood Cell Morphology Normal Sodium Level 140 mEQ/L (135-145) Potassium Level 4.7 mEQ/L (3.4-4.9) Chloride Level 103 mEQ/L (98-107) Carbon Dioxide Level 30 mEQ/L (20-30) Anion Gap 7 (5-15) Blood Urea Nitrogen 13 mg/dL (7-23) Creatinine 0.6 mg/dL (0.7-1.2) L Estimat Glomerular Filtration Rate mL/min (>60) Glucose Level 125 mg/dL (74-106) H Calcium Level 8.7 mg/dL (8.6-10.2) Microbiology Date/Time Source Procedure Growth Status 06/09/16 23:15 Nasal Nares Influenza Types A,B Antigen (KAYLEEN) - Final Complete Intake and Output 06/11/16 06/12/16 19:00 07:00 Intake Total 688.75 ml 610 ml Output Total 600 ml 900 ml Balance 88.75 ml -290 ml Intake Oral 200 ml 610 ml IV Total 488.75 ml Output Urine Total 600 ml 900 ml Objective General Appearance: alert, moderate distress, thin EENT: PERRL/EOMI, normal ENT inspection, TMs normal Neck: non-tender, normal alignment, supple, normal inspection Cardiovascular: regular rhythm, no gallop/murmur, no JVD, tachycardia Respiratory/Chest: chest wall non-tender, decreased breath sounds, accessory muscle use, crackles/rales, rhonchi - bilaterally, expiratory wheezing Abdomen: normal bowel sounds, non tender, soft, no organomegaly, no mass Extremities: normal range of motion, non-tender 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 See pulmonary note. (5) Acute exacerbation of chronic obstructive pulmonary disease Assessment & Plan: see pulmonary note. Cont IV solumedrol, duoneb and theophylline. (6) Leukocytosis Assessment & Plan: ?secondary to IV solumedrol? Status: progressing DAVION STROUD Jun 12, 2016 17:56
[2016-06-12 20:00] VITALS: BP 102/53
[2016-06-13] VITALS: BP 102/53
[2016-06-13] MEDS: DuoNeb 0.5-3(2.5)mg/3ml neb HHN SCH ×6 (03:40→23:45)
[2016-06-13 04:00] VITALS: BP 94/50
[2016-06-13] MEDS: NovoLOG Insulin Flexpen SUBQ SCH ×4 (06:30→21:00)
[2016-06-13 07:27] LABS: ANION GAP 12 (5-15); CARBON DIOXIDE 30 mEQ/L (20-30); CHLORIDE 100 mEQ/L (98-107); CREATININE 0.6 mg/dL (0.7-1.2); HEMOLYSIS 7; POTASSIUM 4.5 mEQ/L (3.4-4.9); SODIUM 142 mEQ/L (135-145)
[2016-06-13 07:34] LABS: MEAN CORPUSCULAR HEMOGLOBIN 32.1 PG (27.0-31.0); MEAN CORPUSCULAR HGB CONC 33.5 G/DL (32.0-36.0); MEAN CORPUSCULAR VOLUME 96 FL (80-99); MEAN PLATELET VOLUME 7.6 FL (6.5-10.1); PLATELET COUNT 146 K/UL (150-450); RED BLOOD COUNT 3.96 M/UL (4.70-6.10); RED CELL DISTRIBUTION WIDTH 12.5 % (11.6-14.8); WHITE BLOOD COUNT 11.5 K/UL (4.8-10.8)
[2016-06-13 08:16] LABS: HEMOGLOBIN A1C 5.9 % (< 6.0)
[2016-06-13 08:33] VITALS: BP 100/57
[2016-06-13] MEDS: Advair 250/50 Inhaler - 14 dose INH SCH ×2 (09:00→18:00)
[2016-06-13] MEDS: Heparin 5000 units/ml inj SUBQ SCH ×2 (09:00→21:00)
[2016-06-13] MEDS: Solu-MEDROL 125mg Inj IVP SCH (09:40)
[2016-06-13 09:53] LABS: BAND NEUTROPHILS % (MANUAL) 1 % (0-8); BASOPHILS % (MANUAL) 0 % (0-2); EOSINOPHILS % (MANUAL) 0 % (0-3); LYMPHOCYTES % (MANUAL) 2 % (20-45); NEUTROPHILS % (MANUAL) 87 % (45-75); PLATELET ESTIMATE ADEQUATE; PLATELET MORPHOLOGY NORMAL; TOTAL CELLS COUNTED 100
[2016-06-13 11:21] VITALS: BP 93/51
--- NOTE | 2016-06-13 14:54 | Pulmonology Progress Note ---
Assessment/Plan Assessment/Plan ASSESSMENT acute COPD exacerbation emphysema hypoxemia active smoker substance abuse in remission PLAN OF CARE [place] floor O2 HHN, CPT IV steroids and taper empiric abx, CXR no acute CR disease, buit c/w COPD changes leukocytosis likely reactive 2 to steroids, afebrile influenza screen negative, blood cx prelim negative, get sputum cx if able continue Theophylline antitussive prn continue Advair CT chest noted, c/w emphysema, bronchiectasis BS management with SS of insulin ( elevated BS with steroids) , get HgA1c genetic counselor on smoking cessation dc plan for am as per PMD on Medrol dose pack,abx, inhalers ( scripts left) case discussed and evaluated by supervising physician Subjective Allergies: Coded Allergies: No Known Allergies (Unverified , 06/09/16) Subjective afebrile, mild leukocytosis clinically improving CT chest noted occasional SOB with dry cough, no hemoptysis, no wheezing no chest pain, no palpitations Objective Last 24 Hour Vital Signs Date Time Temp Pulse Resp B/P Pulse Ox O2 Delivery O2 Flow Rate FiO2 06/13/16 11:21 97.9 93 16 93/51 94 Nasal Cannula 06/13/16 11:10 93 18 95 Nasal Cannula 2.0 28 06/13/16 11:00 92 18 95 Nasal Cannula 2.0 28 06/13/16 08:33 97.7 90 16 100/57 92 Nasal Cannula 06/13/16 07:20 92 18 98 Nasal Cannula 2.0 28 06/13/16 07:10 90 18 97 Nasal Cannula 2.0 28 06/13/16 07:10 Nasal Cannula 2.0 28 06/13/16 07:10 97 Nasal Cannula 2.0 28 06/13/16 04:00 97.6 92 18 94/50 99 Nasal Cannula 2.0 06/13/16 03:44 81 18 98 Nasal Cannula 2.0 28 06/13/16 03:43 84 18 98 Nasal Cannula 2.0 28 06/13/16 00:00 98.8 81 18 102/53 95 Nasal Cannula 2.0 06/12/16 23:18 79 18 98 Nasal Cannula 2.0 28 06/12/16 23:17 82 18 97 Nasal Cannula 2.0 28 06/12/16 20:00 98.2 95 18 102/53 95 Nasal Cannula 2.0 06/12/16 19:43 87 18 98 Nasal Cannula 2.0 28 06/12/16 19:40 86 20 97 Nasal Cannula 2.0 28 06/12/16 19:39 97 Nasal Cannula 2.0 28 06/12/16 19:39 Nasal Cannula 2.0 28 06/12/16 16:00 98.4 97 20 101/54 95 Nasal Cannula 2.0 06/12/16 14:51 88 18 98 Nasal Cannula 2.0 28 Intake and Output 06/12/16 06/13/16 19:00 07:00 Intake Total 1000 ml 300 ml Output Total 300 ml 500 ml Balance 700 ml -200 ml Intake Oral 1000 ml 300 ml Output Urine Total 300 ml 500 ml Objective General Appearance: WD/WN, no acute distress, cachetic HEENT: normocephalic, atraumatic, anicteric, PERRL, no JVD Respiratory/Chest: chest wall non-tender, no respiratory distress, no accessory muscle use, decreased breath sounds Cardiovascular: normal peripheral pulses, regular rhythm, no JVD, Abdomen: normal bowel sounds, soft, non tender Genitourinary: normal external genitalia Extremities: no edema, pedal pulses normal Neurologic/Psychiatric: no motor/sensory deficits, alert, oriented x 3, responsive Musculoskeletal: normal muscle bulk Laboratory Tests 06/13/16 05:35: White Blood Count 11.5H, Red Blood Count 3.96L, Hemoglobin 12.7L, Hematocrit 38.0L, Mean Corpuscular Volume 96, Mean Corpuscular Hemoglobin 32.1H, Mean Corpuscular Hemoglobin Concent 33.5, Red Cell Distribution Width 12.5, Platelet Count 146L, Mean Platelet Volume 7.6, Neutrophils (%) (Auto) , Lymphocytes (%) ( Auto) , Monocytes (%) (Auto) , Eosinophils (%) (Auto) , Basophils (%) (Auto) , Differential Total Cells Counted 100, Neutrophils % (Manual) 87H, Lymphocytes % (Manual) 2L, Monocytes % (Manual) 10, Eosinophils % (Manual) 0, Basophils % ( Manual) 0, Band Neutrophils 1, Platelet Estimate Adequate, Platelet Morphology Normal, Red Blood Cell Morphology Normal, Sodium Level 142, Potassium Level 4.5 , Chloride Level 100, Carbon Dioxide Level 30, Anion Gap 12, Blood Urea Nitrogen 13, Creatinine 0.6L, Estimat Glomerular Filtration Rate , Glucose Level 117H, Hemoglobin A1c 5.9, Calcium Level 9.0 Current Medications Medications (Trade) Dose Ordered Sig/Isabel Route PRN Reason Start Time Stop Time Status Last Admin Dose Admin Acetaminophen (Tylenol) 650 mg Q6H PRN ORAL Mild Pain/Temp > 100.5 06/12/16 00:15 07/12/16 00:14 Acetaminophen/ Hydrocodone Bitart ([place] 5/325) 1 tab Q6H PRN ORAL MOD-SEVERE PAIN 06/12/16 00:15 06/19/16 00:14 Albuterol/ Ipratropium (DuoNeb 0.5-3(2.5)mg/3ml) 3 ml Q4HRT HHN 06/11/16 23:00 06/16/16 22:59 06/13/16 11:19 Dextrose (Dextrose 50%) STAT PRN IV Hypoglycemia 06/12/16 06:15 07/12/16 06:14 Heparin Sodium (Porcine) (Heparin 5000 units/ml) 5,000 units EVERY 12 HOURS SUBQ 06/11/16 21:00 07/11/16 20:59 Insulin Aspart (NovoLOG) BEFORE MEALS AND HS SUBQ 06/11/16 21:00 07/11/16 20:59 Levofloxacin (Levaquin) 50 ml @ 50 mls/hr Q24H IVPB 06/12/16 08:00 06/18/16 07:59 06/13/16 09:40 Methylprednisolone Sodium Succinate (Solu-MEDROL) 80 mg DAILY IVP 06/13/16 09:00 07/13/16 08:59 06/13/16 09:40 Ondansetron HCl (Zofran) 4 mg Q4H PRN IVP Nausea & Vomiting 06/11/16 22:15 07/11/16 22:14 Promethazine HCl/ Codeine (Phenergan with Codeine) 5 ml Q4H PRN ORAL For Cough 06/11/16 23:30 07/11/16 23:29 Salmeterol Xinafoate/ Fluticasone (Advair 250/50 Diskus) 1 puffs BID INH 06/12/16 09:00 07/12/16 08:59 06/13/16 09:00 Mery Pfeiffer NP ([facility]) Jun 13, 2016 14:54
[2016-06-13 15:53] VITALS: BP 100/51
--- NOTE | 2016-06-13 16:14 | Internal Med Progress Note ---
Subjective Date of Service: Jun 13, 2016 Physician Name DanetteDavion Attending Physician Neil Chi MD Current Medications Medications (Trade) Dose Ordered Sig/Isabel Route PRN Reason Start Time Stop Time Status Last Admin Dose Admin Acetaminophen (Tylenol) 650 mg Q6H PRN ORAL Mild Pain/Temp > 100.5 06/12/16 00:15 07/12/16 00:14 Acetaminophen/ Hydrocodone Bitart ([place] 5/325) 1 tab Q6H PRN ORAL MOD-SEVERE PAIN 06/12/16 00:15 06/19/16 00:14 Albuterol/ Ipratropium (DuoNeb 0.5-3(2.5)mg/3ml) 3 ml Q4HRT HHN 06/11/16 23:00 06/16/16 22:59 06/13/16 15:15 Dextrose (Dextrose 50%) STAT PRN IV Hypoglycemia 06/12/16 06:15 07/12/16 06:14 Heparin Sodium (Porcine) (Heparin 5000 units/ml) 5,000 units EVERY 12 HOURS SUBQ 06/11/16 21:00 07/11/16 20:59 Insulin Aspart (NovoLOG) BEFORE MEALS AND HS SUBQ 06/11/16 21:00 07/11/16 20:59 Levofloxacin (Levaquin) 50 ml @ 50 mls/hr Q24H IVPB 06/12/16 08:00 06/18/16 07:59 06/13/16 09:40 Methylprednisolone Sodium Succinate (Solu-MEDROL) 80 mg DAILY IVP 06/13/16 09:00 07/13/16 08:59 06/13/16 09:40 Ondansetron HCl (Zofran) 4 mg Q4H PRN IVP Nausea & Vomiting 06/11/16 22:15 07/11/16 22:14 Promethazine HCl/ Codeine (Phenergan with Codeine) 5 ml Q4H PRN ORAL For Cough 06/11/16 23:30 07/11/16 23:29 Salmeterol Xinafoate/ Fluticasone (Advair 250/50 Diskus) 1 puffs BID INH 06/12/16 09:00 07/12/16 08:59 06/13/16 09:00 Allergies: Coded Allergies: No Known Allergies (Unverified , 06/09/16) ROS Limited/Unobtainable: No Constitutional: Reports: no symptoms HEENT: Reports: no symptoms Cardiovascular: Reports: no symptoms Respiratory: Reports: cough, shortness of breath Gastrointestinal/Abdominal: Reports: no symptoms Genitourinary: Reports: no symptoms Neurologic/Psychiatric: Reports: no symptoms Subjective 71 YO M admitted for Shortness of breath and COPD exacerbation. Cover for Int Jose-Dr Chi. Objective Last Vital Signs Date Time Temp Pulse Resp B/P Pulse Ox O2 Delivery O2 Flow Rate FiO2 06/13/16 15:53 96.8 84 20 100/51 98 Nasal Cannula 2.0 06/13/16 15:26 28 Laboratory Tests Test 06/13/16 05:35 White Blood Count 11.5 K/UL (4.8-10.8) H Red Blood Count 3.96 M/UL (4.70-6.10) L Hemoglobin 12.7 G/DL (14.2-18.0) L Hematocrit 38.0 % (42.0-52.0) L Mean Corpuscular Volume 96 FL (80-99) Mean Corpuscular Hemoglobin 32.1 PG (27.0-31.0) H Mean Corpuscular Hemoglobin Concent 33.5 G/DL (32.0-36.0) Red Cell Distribution Width 12.5 % (11.6-14.8) Platelet Count 146 K/UL (150-450) L Mean Platelet Volume 7.6 FL (6.5-10.1) Neutrophils (%) (Auto) % (45.0-75.0) Lymphocytes (%) (Auto) % (20.0-45.0) Monocytes (%) (Auto) % (1.0-10.0) Eosinophils (%) (Auto) % (0.0-3.0) Basophils (%) (Auto) % (0.0-2.0) Differential Total Cells Counted 100 Neutrophils % (Manual) 87 % (45-75) H Lymphocytes % (Manual) 2 % (20-45) L Monocytes % (Manual) 10 % (1-10) Eosinophils % (Manual) 0 % (0-3) Basophils % (Manual) 0 % (0-2) Band Neutrophils 1 % (0-8) Platelet Estimate Adequate Platelet Morphology Normal Red Blood Cell Morphology Normal Sodium Level 142 mEQ/L (135-145) Potassium Level 4.5 mEQ/L (3.4-4.9) Chloride Level 100 mEQ/L (98-107) Carbon Dioxide Level 30 mEQ/L (20-30) Anion Gap 12 (5-15) Blood Urea Nitrogen 13 mg/dL (7-23) Creatinine 0.6 mg/dL (0.7-1.2) L Estimat Glomerular Filtration Rate mL/min (>60) Glucose Level 117 mg/dL (74-106) H Hemoglobin A1c 5.9 % (< 6.0) Calcium Level 9.0 mg/dL (8.6-10.2) Intake and Output 06/12/16 06/13/16 19:00 07:00 Intake Total 1000 ml 300 ml Output Total 300 ml 500 ml Balance 700 ml -200 ml Intake Oral 1000 ml 300 ml Output Urine Total 300 ml 500 ml Objective General Appearance: alert, moderate distress, thin EENT: PERRL/EOMI, normal ENT inspection, TMs normal Neck: non-tender, normal alignment, supple, normal inspection Cardiovascular: regular rhythm, no gallop/murmur, no JVD, tachycardia Respiratory/Chest: chest wall non-tender, decreased breath sounds, accessory muscle use, crackles/rales, rhonchi - bilaterally, expiratory wheezing Abdomen: normal bowel sounds, non tender, soft, no organomegaly, no mass Extremities: normal range of motion, non-tender 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 See pulmonary note. (5) Acute exacerbation of chronic obstructive pulmonary disease Assessment & Plan: Cont IV solumedrol, duoneb and theophylline. Plan to D/C IV solumedrol and start oral prednisone per pulmonary-see pulmonary note (6) Leukocytosis Assessment & Plan: ?secondary to IV solumedrol? Status: progressing DAVION STROUD Jun 13, 2016 16:14
[2016-06-13 19:00] VITALS: BP 100/63
[2016-06-14] VITALS: BP 112/61
[2016-06-14] MEDS: DuoNeb 0.5-3(2.5)mg/3ml neb HHN SCH ×6 (03:58→23:15)
[2016-06-14 04:00] VITALS: BP 113/63
[2016-06-14] MEDS: NovoLOG Insulin Flexpen SUBQ SCH ×4 (06:30→21:00)
[2016-06-14 07:31] LABS: BASOPHILS % (AUTO) 1.8 % (0.0-2.0); LYMPHOCYTES % (AUTO) 9.6 % (20.0-45.0); MEAN CORPUSCULAR HEMOGLOBIN 30.9 PG (27.0-31.0); MEAN CORPUSCULAR HGB CONC 31.3 G/DL (32.0-36.0); MEAN CORPUSCULAR VOLUME 99 FL (80-99); MEAN PLATELET VOLUME 7.6 FL (6.5-10.1); MONOCYTES % (AUTO) 9.2 % (1.0-10.0); NEUTROPHILS % (AUTO) 79.4 % (45.0-75.0); PLATELET COUNT 145 K/UL (150-450); RED BLOOD COUNT 3.89 M/UL (4.70-6.10); RED CELL DISTRIBUTION WIDTH 12.6 % (11.6-14.8); WHITE BLOOD COUNT 10.5 K/UL (4.8-10.8)
[2016-06-14 07:43] LABS: ANION GAP 7 (5-15); CALCIUM 8.4 mg/dL (8.6-10.2); CARBON DIOXIDE 31 mEQ/L (20-30); CHLORIDE 98 mEQ/L (98-107); CREATININE 0.5 mg/dL (0.7-1.2); HEMOLYSIS 6; POTASSIUM 4.2 mEQ/L (3.4-4.9); SODIUM 136 mEQ/L (135-145)
[2016-06-14 08:00] VITALS: BP 104/68
[2016-06-14] MEDS: Solu-MEDROL 125mg Inj IVP SCH (08:35)
[2016-06-14] MEDS: Heparin 5000 units/ml inj SUBQ SCH ×2 (08:36→21:00)
[2016-06-14] MEDS: Advair 250/50 Inhaler - 14 dose INH SCH ×2 (09:15→19:23)
[2016-06-14 12:00] VITALS: BP 105/57
--- NOTE | 2016-06-14 12:35 | Pulmonology Progress Note ---
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 on smoking cessation dc plan for todayas per PMD on Medrol dose pack,abx, inhalers ( scripts left in the chart ) case discussed and evaluated by supervising physician Subjective Allergies: Coded Allergies: No Known Allergies (Unverified , 06/09/16) Subjective afebrile, leukocytosis resolved clinically improving CT chest noted dry cough, no hemoptysis, no wheezing no chest pain, no palpitations Objective Last 24 Hour Vital Signs Date Time Temp Pulse Resp B/P Pulse Ox O2 Delivery O2 Flow Rate FiO2 06/14/16 12:00 99.0 64 18 105/57 91 Nasal Cannula 2.0 06/14/16 11:05 82 20 98 Nasal Cannula 2.0 28 06/14/16 10:54 81 18 94 Nasal Cannula 2.0 28 06/14/16 08:00 98.1 98 18 104/68 98 Nasal Cannula 2.0 06/14/16 07:31 79 20 98 Nasal Cannula 2.0 28 06/14/16 07:21 79 18 93 Nasal Cannula 2.0 28 06/14/16 07:20 93 Nasal Cannula 2.0 28 06/14/16 07:20 Nasal Cannula 2.0 28 06/14/16 04:00 98.2 88 18 113/63 98 Nasal Cannula 2.0 06/14/16 04:00 92 20 98 Nasal Cannula 2.0 28 06/14/16 03:32 90 20 94 Nasal Cannula 2.0 28 06/14/16 00:00 98.2 97 18 112/61 92 Nasal Cannula 2.0 06/13/16 23:35 97 18 99 Nasal Cannula 2.0 28 06/13/16 23:30 97 18 95 Nasal Cannula 2.0 28 06/13/16 21:00 Nasal Cannula 2.0 28 06/13/16 21:00 98 Nasal Cannula 2.0 28 06/13/16 20:53 96 18 99 Nasal Cannula 2.0 28 06/13/16 20:48 92 18 95 Nasal Cannula 2.0 28 06/13/16 19:00 97.9 81 20 100/63 94 Nasal Cannula 2.0 06/13/16 15:53 96.8 84 20 100/51 98 Nasal Cannula 2.0 06/13/16 15:26 95 18 97 Nasal Cannula 2.0 28 06/13/16 15:14 85 18 94 Nasal Cannula 2.0 28 Intake and Output 06/13/16 06/14/16 19:00 07:00 Intake Total 900 ml 120 ml Output Total 400 ml Balance 500 ml 120 ml Intake Oral 900 ml 120 ml Output Urine Total 400 ml # Voids 5 Objective General Appearance: WD/WN, no acute distress, cachetic HEENT: normocephalic, atraumatic, anicteric, PERRL, no JVD Respiratory/Chest: chest wall non-tender, no respiratory distress, no accessory muscle use, decreased breath sounds Cardiovascular: normal peripheral pulses, regular rhythm, no JVD, Abdomen: normal bowel sounds, soft, non tender Genitourinary: normal external genitalia Extremities: no edema, pedal pulses normal Neurologic/Psychiatric: no motor/sensory deficits, alert, oriented x 3, responsive Musculoskeletal: normal muscle bulk Laboratory Tests 06/14/16 06:00: White Blood Count 10.5, Red Blood Count 3.89L, Hemoglobin 12.0L, Hematocrit 38.4L, Mean Corpuscular Volume 99, Mean Corpuscular Hemoglobin 30.9, Mean Corpuscular Hemoglobin Concent 31.3L, Red Cell Distribution Width 12.6, Platelet Count 145L, Mean Platelet Volume 7.6, Neutrophils (%) (Auto) 79.4H, Lymphocytes (%) (Auto) 9.6L, Monocytes (%) (Auto) 9.2, Eosinophils (%) (Auto) 0.0, Basophils (%) (Auto) 1.8, Sodium Level 136, Potassium Level 4.2, Chloride Level 98, Carbon Dioxide Level 31H, Anion Gap 7, Blood Urea Nitrogen 16, Creatinine 0.5L, Estimat Glomerular Filtration Rate , Glucose Level 96, Calcium Level 8.4L Current Medications Medications (Trade) Dose Ordered Sig/Isabel Route PRN Reason Start Time Stop Time Status Last Admin Dose Admin Acetaminophen (Tylenol) 650 mg Q6H PRN ORAL Mild Pain/Temp > 100.5 06/12/16 00:15 07/12/16 00:14 Acetaminophen/ Hydrocodone Bitart ([place] 5/325) 1 tab Q6H PRN ORAL MOD-SEVERE PAIN 06/12/16 00:15 06/19/16 00:14 Albuterol/ Ipratropium (DuoNeb 0.5-3(2.5)mg/3ml) 3 ml Q4HRT HHN 06/11/16 23:00 06/16/16 22:59 06/14/16 10:55 Dextrose (Dextrose 50%) STAT PRN IV Hypoglycemia 06/12/16 06:15 07/12/16 06:14 Heparin Sodium (Porcine) (Heparin 5000 units/ml) 5,000 units EVERY 12 HOURS SUBQ 06/11/16 21:00 07/11/16 20:59 Insulin Aspart (NovoLOG) BEFORE MEALS AND HS SUBQ 06/11/16 21:00 07/11/16 20:59 Levofloxacin (Levaquin) 50 ml @ 50 mls/hr Q24H IVPB 06/12/16 08:00 06/18/16 07:59 06/14/16 08:36 Methylprednisolone Sodium Succinate (Solu-MEDROL) 80 mg DAILY IVP 06/13/16 09:00 07/13/16 08:59 06/14/16 08:35 Ondansetron HCl (Zofran) 4 mg Q4H PRN IVP Nausea & Vomiting 06/11/16 22:15 07/11/16 22:14 Promethazine HCl/ Codeine (Phenergan with Codeine) 5 ml Q4H PRN ORAL For Cough 06/11/16 23:30 07/11/16 23:29 Salmeterol Xinafoate/ Fluticasone (Advair 250/50 Diskus) 1 puffs BID INH 06/12/16 09:00 07/12/16 08:59 06/14/16 09:15 Mery Pfeiffer NP ([facility]) Jun 14, 2016 12:35
[2016-06-14 15:54] VITALS: BP 139/84
[2016-06-14 19:00] VITALS: BP 119/70
--- NOTE | 2016-06-14 19:49 | Internal Med Progress Note ---
Subjective Date of Service: Jun 14, 2016 Physician Name DanetteDavion Attending Physician Neil Chi MD Current Medications Medications (Trade) Dose Ordered Sig/Isabel Route PRN Reason Start Time Stop Time Status Last Admin Dose Admin Acetaminophen (Tylenol) 650 mg Q6H PRN ORAL Mild Pain/Temp > 100.5 06/12/16 00:15 07/12/16 00:14 Acetaminophen/ Hydrocodone Bitart ([place] 5/325) 1 tab Q6H PRN ORAL MOD-SEVERE PAIN 06/12/16 00:15 06/19/16 00:14 Albuterol/ Ipratropium (DuoNeb 0.5-3(2.5)mg/3ml) 3 ml Q4HRT HHN 06/11/16 23:00 06/16/16 22:59 06/14/16 19:23 Dextrose (Dextrose 50%) STAT PRN IV Hypoglycemia 06/12/16 06:15 07/12/16 06:14 Heparin Sodium (Porcine) (Heparin 5000 units/ml) 5,000 units EVERY 12 HOURS SUBQ 06/11/16 21:00 07/11/16 20:59 Insulin Aspart (NovoLOG) BEFORE MEALS AND HS SUBQ 06/11/16 21:00 07/11/16 20:59 Levofloxacin (Levaquin) 50 ml @ 50 mls/hr Q24H IVPB 06/12/16 08:00 06/18/16 07:59 06/14/16 08:36 Methylprednisolone Sodium Succinate (Solu-MEDROL) 80 mg DAILY IVP 06/13/16 09:00 07/13/16 08:59 06/14/16 08:35 Ondansetron HCl (Zofran) 4 mg Q4H PRN IVP Nausea & Vomiting 06/11/16 22:15 07/11/16 22:14 Promethazine HCl/ Codeine (Phenergan with Codeine) 5 ml Q4H PRN ORAL For Cough 06/11/16 23:30 07/11/16 23:29 06/14/16 14:08 Salmeterol Xinafoate/ Fluticasone (Advair 250/50 Diskus) 1 puffs BID INH 06/12/16 09:00 07/12/16 08:59 06/14/16 19:23 Allergies: Coded Allergies: No Known Allergies (Unverified , 06/09/16) ROS Limited/Unobtainable: No Constitutional: Reports: no symptoms HEENT: Reports: no symptoms Cardiovascular: Reports: no symptoms Respiratory: Reports: shortness of breath Gastrointestinal/Abdominal: Reports: no symptoms Genitourinary: Reports: no symptoms Subjective 71 YO M admitted for Shortness of breath and COPD exacerbation. Cover for Int Jose-Dr Chi. Objective Last Vital Signs Date Time Temp Pulse Resp B/P Pulse Ox O2 Delivery O2 Flow Rate FiO2 06/14/16 18:42 89 20 Nasal Cannula 2.0 06/14/16 15:54 97.5 139/84 97 06/14/16 15:10 28 Laboratory Tests Test 06/14/16 06:00 White Blood Count 10.5 K/UL (4.8-10.8) Red Blood Count 3.89 M/UL (4.70-6.10) L Hemoglobin 12.0 G/DL (14.2-18.0) L Hematocrit 38.4 % (42.0-52.0) L Mean Corpuscular Volume 99 FL (80-99) Mean Corpuscular Hemoglobin 30.9 PG (27.0-31.0) Mean Corpuscular Hemoglobin Concent 31.3 G/DL (32.0-36.0) L Red Cell Distribution Width 12.6 % (11.6-14.8) Platelet Count 145 K/UL (150-450) L Mean Platelet Volume 7.6 FL (6.5-10.1) Neutrophils (%) (Auto) 79.4 % (45.0-75.0) H Lymphocytes (%) (Auto) 9.6 % (20.0-45.0) L Monocytes (%) (Auto) 9.2 % (1.0-10.0) Eosinophils (%) (Auto) 0.0 % (0.0-3.0) Basophils (%) (Auto) 1.8 % (0.0-2.0) Sodium Level 136 mEQ/L (135-145) Potassium Level 4.2 mEQ/L (3.4-4.9) Chloride Level 98 mEQ/L (98-107) Carbon Dioxide Level 31 mEQ/L (20-30) H Anion Gap 7 (5-15) Blood Urea Nitrogen 16 mg/dL (7-23) Creatinine 0.5 mg/dL (0.7-1.2) L Estimat Glomerular Filtration Rate mL/min (>60) Glucose Level 96 mg/dL (74-106) Calcium Level 8.4 mg/dL (8.6-10.2) L Intake and Output 06/13/16 06/14/16 19:00 07:00 Intake Total 900 ml 120 ml Output Total 400 ml Balance 500 ml 120 ml Intake Oral 900 ml 120 ml Output Urine Total 400 ml # Voids 5 Objective General Appearance: alert, moderate distress, thin EENT: PERRL/EOMI, normal ENT inspection, TMs normal Neck: non-tender, normal alignment, supple, normal inspection Cardiovascular: regular rhythm, no gallop/murmur, no JVD, tachycardia Respiratory/Chest: chest wall non-tender, decreased breath sounds, accessory muscle use, crackles/rales, rhonchi - bilaterally, expiratory wheezing Abdomen: normal bowel sounds, non tender, soft, no organomegaly, no mass Extremities: normal range of motion, non-tender 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 See pulmonary note. (5) Acute exacerbation of chronic obstructive pulmonary disease Assessment & Plan: Cont IV solumedrol, duoneb and theophylline. Plan to D/C IV solumedrol and start oral prednisone per pulmonary-see pulmonary note (6) Leukocytosis Assessment & Plan: ?secondary to IV solumedrol? Status: progressing DAVION STROUD Jun 14, 2016 19:49
[2016-06-15] VITALS: BP 110/67
[2016-06-15] MEDS: DuoNeb 0.5-3(2.5)mg/3ml neb HHN SCH ×5 (03:20→19:00)
[2016-06-15 04:00] VITALS: BP 117/75
[2016-06-15] MEDS: NovoLOG Insulin Flexpen SUBQ SCH ×4 (06:30→21:00)
[2016-06-15] MEDS: Advair 250/50 Inhaler - 14 dose INH SCH ×2 (07:46→18:00)
[2016-06-15 08:22] LABS: BASOPHILS % (AUTO) 1.3 % (0.0-2.0); LYMPHOCYTES % (AUTO) 14.1 % (20.0-45.0); MEAN CORPUSCULAR HGB CONC 31.5 G/DL (32.0-36.0); MEAN CORPUSCULAR VOLUME 98 FL (80-99); MEAN PLATELET VOLUME 6.4 FL (6.5-10.1); MONOCYTES % (AUTO) 11.6 % (1.0-10.0); PLATELET COUNT 170 K/UL (150-450); RED BLOOD COUNT 3.82 M/UL (4.70-6.10); RED CELL DISTRIBUTION WIDTH 12.8 % (11.6-14.8); WHITE BLOOD COUNT 9.1 K/UL (4.8-10.8)
[2016-06-15] MEDS: Heparin 5000 units/ml inj SUBQ SCH ×2 (08:23→21:00)
[2016-06-15 08:37] LABS: ANION GAP 8 (5-15); CALCIUM 8.4 mg/dL (8.6-10.2); CARBON DIOXIDE 32 mEQ/L (20-30); CHLORIDE 98 mEQ/L (98-107); CREATININE 0.6 mg/dL (0.7-1.2); HEMOLYSIS 2; POTASSIUM 4.1 mEQ/L (3.4-4.9); SODIUM 138 mEQ/L (135-145)
[2016-06-15 08:41] VITALS: BP 114/69
[2016-06-15] MEDS ORDERED: PredniSONE 20mg tab ORAL ONE (09:00)
[2016-06-15 11:41] VITALS: BP 115/62
[2016-06-15] MEDS ORDERED: PROMETHAZINE-C118 M1 ORAL (11:55)
[2016-06-15] MEDS ORDERED: ADVAIR 250/501 PUFFS INH (11:55)
--- NOTE | 2016-06-15 11:56 | Discharge Summary ---
Discharge Summary Hospital Course Date of Admission Jun 09, 2016 at 19:00 Date of Discharge Admitting Diagnosis copd exacerbation HPI Tobias Contreras is a 71 year old male who was admitted on Jun 09, 2016 at 19:00 for Chronic Obstructive Pulmonary Disease Hospital Course Dictated for Int Med-Dr Chi no. [id number]. Discharge Discharge Disposition Patient was discharged to Discharge Diagnoses: DAVION STROUD Jun 15, 2016 11:56
[2016-06-15 14:36] LABS: ABG ALLEN TEST POSITIVE; ABG PCO2 42.1 mmHg (35.0-45.0)
[2016-06-15 16:10] VITALS: BP 117/71
--- NOTE | 2016-06-15 16:24 | Pulmonology Progress Note ---
Assessment/Plan Problems: (1) Acute exacerbation of chronic obstructive pulmonary disease (2) Hypoxemia (3) Substance abuse in remission (4) Smoker Assessment/Plan improving taper off steroids on Levofloxacin titrate fio2 to sat of 92% dc planning Subjective ROS Limited/Unobtainable: No Interval Events: doing much better, Allergies: Coded Allergies: No Known Allergies (Unverified , 06/09/16) Objective Last 24 Hour Vital Signs Date Time Temp Pulse Resp B/P Pulse Ox O2 Delivery O2 Flow Rate FiO2 06/15/16 16:10 98.2 117 20 117/71 93 Nasal Cannula 2.0 06/15/16 15:25 82 18 Nasal Cannula 2.0 28 06/15/16 15:17 79 18 Nasal Cannula 2.0 28 06/15/16 13:40 88 Room Air 06/15/16 11:41 97.9 91 21 115/62 92 Nasal Cannula 2.0 06/15/16 11:18 Nasal Cannula 06/15/16 11:18 Nasal Cannula 06/15/16 10:30 88 Room Air 06/15/16 08:41 97.7 91 20 114/69 92 Nasal Cannula 2.0 06/15/16 07:57 87 20 99 Nasal Cannula 2.0 28 06/15/16 07:52 Nasal Cannula 2.0 28 06/15/16 07:45 83 18 90 Nasal Cannula 2.0 06/15/16 07:44 90 Nasal Cannula 2.0 06/15/16 04:00 98.1 87 21 117/75 92 Nasal Cannula 2.0 06/15/16 03:50 Nasal Cannula 2.0 06/15/16 03:50 Nasal Cannula 2.0 06/15/16 00:00 97.7 87 19 110/67 92 Nasal Cannula 2.0 06/14/16 23:32 89 20 99 Nasal Cannula 2.0 28 06/14/16 23:15 78 18 92 Nasal Cannula 2.0 06/14/16 19:10 92 20 99 Nasal Cannula 2.0 06/14/16 19:05 97 18 93 Nasal Cannula 2.0 06/14/16 19:00 Nasal Cannula 2.0 28 06/14/16 19:00 97.7 95 20 119/70 91 Nasal Cannula 2.0 06/14/16 19:00 93 Nasal Cannula 2.0 28 06/14/16 18:42 89 20 Nasal Cannula 2.0 Intake and Output 06/14/16 06/15/16 19:00 07:00 Intake Total 700 ml 120 ml Balance 700 ml 120 ml Intake Oral 650 ml 120 ml IV Total 50 ml # Voids 2 6 General Appearance: cachetic HEENT: normocephalic, atraumatic Respiratory/Chest: chest wall non-tender, normal breath sounds Cardiovascular: normal peripheral pulses, normal rate Abdomen: soft, non tender Genitourinary: normal external genitalia 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 grossly normal, abnormal gait Lymphatic: no neck adenopathy Laboratory Tests 06/15/16 06:45: White Blood Count 9.1, Red Blood Count 3.82L, Hemoglobin 11.9L, Hematocrit 37.6L , Mean Corpuscular Volume 98, Mean Corpuscular Hemoglobin 31.0, Mean Corpuscular Hemoglobin Concent 31.5L, Red Cell Distribution Width 12.8, Platelet Count 170, Mean Platelet Volume 6.4L, Neutrophils (%) (Auto) 73.0, Lymphocytes (%) (Auto) 14.1L, Monocytes (%) (Auto) 11.6H, Eosinophils (%) (Auto ) 0.0, Basophils (%) (Auto) 1.3, Sodium Level 138, Potassium Level 4.1, Chloride Level 98, Carbon Dioxide Level 32H, Anion Gap 8, Blood Urea Nitrogen 14 , Creatinine 0.6L, Estimat Glomerular Filtration Rate , Glucose Level 87, Calcium Level 8.4L 06/15/16 14:25: Arterial Blood pH 7.457H, Arterial Blood Partial Pressure CO2 42.1, Arterial Blood Partial Pressure O2 60.2L, Arterial Blood HCO3 29.5H, Arterial Blood Oxygen Saturation 92.1, Arterial Blood Base Excess 5.0, Richar Test Positive Current Medications Medications (Trade) Dose Ordered Sig/Isabel Route PRN Reason Start Time Stop Time Status Last Admin Dose Admin Acetaminophen (Tylenol) 650 mg Q6H PRN ORAL Mild Pain/Temp > 100.5 06/12/16 00:15 07/12/16 00:14 Acetaminophen/ Hydrocodone Bitart ([place] 5/325) 1 tab Q6H PRN ORAL MOD-SEVERE PAIN 06/12/16 00:15 06/19/16 00:14 Albuterol/ Ipratropium (DuoNeb 0.5-3(2.5)mg/3ml) 3 ml Q4HRT HHN 06/11/16 23:00 06/16/16 22:59 06/15/16 15:23 Dextrose (Dextrose 50%) STAT PRN IV Hypoglycemia 06/12/16 06:15 07/12/16 06:14 Heparin Sodium (Porcine) (Heparin 5000 units/ml) 5,000 units EVERY 12 HOURS SUBQ 06/11/16 21:00 07/11/16 20:59 Insulin Aspart (NovoLOG) BEFORE MEALS AND HS SUBQ 06/11/16 21:00 07/11/16 20:59 Levofloxacin (Levaquin) 50 ml @ 50 mls/hr Q24H IVPB 06/12/16 08:00 06/18/16 07:59 06/15/16 08:23 Ondansetron HCl (Zofran) 4 mg Q4H PRN IVP Nausea & Vomiting 06/11/16 22:15 07/11/16 22:14 Promethazine HCl/ Codeine (Phenergan with Codeine) 5 ml Q4H PRN ORAL For Cough 06/11/16 23:30 07/11/16 23:29 06/14/16 14:08 Salmeterol Xinafoate/ Fluticasone (Advair 250/50 Diskus) 1 puffs BID INH 06/12/16 09:00 07/12/16 08:59 06/15/16 07:46 RIAN LEOS Jun 15, 2016 16:24
[2016-06-15 20:00] VITALS: BP 109/69
--- NOTE | 2016-06-16 05:48 | Discharge Summary ---
DATE OF ADMISSION: 06/09/2016 DATE OF DISCHARGE: 06/15/2016 ADMITTING DIAGNOSES: 1. Shortness of breath. 2. Cough. 3. Chronic obstructive pulmonary disease. 4. Peripheral vascular disease. 5. Hypoxia. DISCHARGE DIAGNOSES: 1. Shortness of breath, resolved. 2. Cough. 3. Chronic obstructive pulmonary disease, acute exacerbation. 4. Peripheral vascular disease. 5. Hypoxia. 6. Leukocytosis. HOSPITAL COURSE BY PROBLEM LIST: 1. Shortness of breath/cough/chronic obstructive pulmonary disease with acute exacerbation. A pulmonary consultation was obtained with Dr. Dobbins. The patient was placed on DuoNeb four times daily. The patient was started on intravenous Solu-Medrol. The patient is currently tolerating oral prednisone. The patient is to be discharged home today on June 15, 2016 with a home nebulizer. Home oxygen has been ordered. The patient will receive home health via [facility]. The patient is to continue Levaquin 500 mg one tablet p.o. for three more days. The patient received intravenous Levaquin during the hospitalization. The patient is to follow up with Dr. Geovany Samaniego in one week. 2. Peripheral vascular disease, stable. 3. Hypoxia secondary to chronic obstructive pulmonary disease as above. 4. Leukocytosis, this is reactionary secondary to intravenous Solu-Medrol as above. DISCHARGE MEDICATIONS: Please refer to discharge medication list. DISCHARGE INSTRUCTIONS: 1. The is discharged home today, on June 15, 2016 with home health via [facility]. 2. The patient is to receive home nebulizer and home oxygen therapy. 3. The patient is to follow up with Dr. Geovany Samaniego in one week. Geovany Samaniego M.D. DR: BEE JOB#: [id number] CC:
== END 2016-06-15 23:00 | disposition home health service (06) | DRG 192 ==
LOC: EDBD 16:47 → EMR 18:47 → 2E 19:00 → EDBEDREQ 23:26 → 2E 06-10 00:50 → 4E 06-11 20:26
DX: J44.1 Chronic obstructive pulmonary disease with (acute) exacerbation (principal); D72.829 Elevated white blood cell count, unspecified; I73.9 Peripheral vascular disease, unspecified; F17.200 Nicotine dependence, unspecified, uncomplicated; R09.02 Hypoxemia; T38.0X5A Adverse effect of glucocorticoids and synthetic analogues, initial encounter; Y92.239 Unspecified place in hospital as the place of occurrence of the external cause; Z23 Encounter for immunization
CPT/HCPCS: 36415; 36600; 70450; 71010; 71260; 80048; 80053; 81003; 82550; 82553; 82803; 82962; 83036; 83605; 83735; 84100; 84484; 85007; 85025; 86710; 87040; 90732; 93005; 94640; 94664; 94760; J1815; J7620; Q2036